=== PATIENT | male | born 1990 | race Two or more races ===

== ENCOUNTER 2025-04-06 07:41 | Outpatient (CLI) | payer BC ==
[2025-04-06 08:19] LABS: EOSINOPHILS # (AUTO) 0.2 X10'3 (0-0.9); EOSINOPHILS % (AUTO) 3.6 % (0-6); HEMATOCRIT 43.3 % (42.0-52.0); HEMOGLOBIN 14.7 g/dl (14.0-17.9); LYMPHOCYTES # (AUTO) 1.7 X10'3 (1.1-4.8); LYMPHOCYTES % (AUTO) 37.6 % (21-51); MEAN CORPUSCULAR HEMOGLOBIN 29.3 PG (27.0-31.0); MEAN CORPUSCULAR VOLUME 86.3 FL (78-98); MEAN PLATELET VOLUME 8.2 FL (7.4-10.4); MONOCYTES # (AUTO) 0.3 X10'3 (0-0.9); MONOCYTES % (AUTO) 6.5 % (2-12); NEUTROPHILS # (AUTO) 2.4 X10'3 (1.8-7.7); NEUTROPHILS % (AUTO) 51.3 % (42-75); PLATELET COUNT 202 X10'3 (140-440); RED BLOOD COUNT 5.01 X10'6 (4.70-6.10); RED CELL DISTRIBUTION WIDTH 13.2 % (11.5-14.5); WHITE BLOOD COUNT 4.6 X10'3 (4.5-11.0)
[2025-04-06 08:22] LABS: ALANINE AMINOTRANSFERASE 14 U/L (12-78); ALBUMIN 3.7 G/DL (3.4-5.0); ALBUMIN/GLOBULIN RATIO 1.1 (1.1-1.5); ALKALINE PHOSPHATASE 52 IU/L (46-116); ANION GAP 5 (8-16); ASPARTATE AMINO TRANSFERASE 22 U/L (10-37); BILIRUBIN,TOTAL 0.4 MG/DL (0.1-1.0); BLOOD UREA NITROGEN 23 MG/DL (7-18); BUN/CREATININE RATIO 18.1 (10.0-20.0); CALCIUM 8.7 MG/DL (8.5-10.1); CHLORIDE 108 MMOL/L (99-107); CHOL/HDL RATIO 3.3 (0.00-4.99); CHOLESTEROL 147 MG/DL (0-200); CREATININE 1.27 MG/DL (0.60-1.10); GLUCOSE 97 MG/DL (70-104); HDL CHOLESTEROL 44 MG/DL (35-60); LDL CHOLESTEROL 88 MG/DL (50-100); POTASSIUM 4.2 MMOL/L (3.5-5.1); SODIUM 143 MMOL/L (135-145); TOTAL CARBON DIOXIDE 29.9 MMOL/L (24-32); TOTAL PROTEIN 7.1 G/DL (6.4-8.2); TRIGLYCERIDES 78 MG/DL (20-135); eGFR 65 ML/MIN
[2025-04-06 08:30] LABS: HEMOGLOBIN A1C 5.2 % (4.5-6.2)
[2025-04-07 11:12] LABS: TESTOSTERONE, SERUM 498 ng/dL (264-916)
[2025-04-08 05:16] LABS: FOLATE SERUM(FOLIC) 7.9 ng/mL (>3.0)
== END 2025-04-06 23:59 | disposition home or self-care (01) ==
LOC: LAB 07:41
PROVIDERS: ATTEND Nurse Practitioner Family
DX: Z13.220 Encounter for screening for lipoid disorders (principal); Z00.01 Encounter for general adult medical examination with abnormal findings; R73.01 Impaired fasting glucose; R53.83 Other fatigue; E55.9 Vitamin D deficiency, unspecified; R68.82 Decreased libido
CPT/HCPCS: 36415; 80053; 80061; 82306; 82607; 82746; 83036; 84402; 84403; 85025

== ENCOUNTER 2025-05-10 10:51 | Outpatient (CLI) | payer BC ==
[2025-05-10 11:40] LABS: BILIRUBIN,URINE NEGATIVE (Neg); CLARITY,URINE CLEAR (Clear); COLOR,URINE STRAW (Yellow); GLUCOSE, URINE NEGATIVE (Neg); KETONES,URINE NEGATIVE (Neg); LEUKOCYTE ESTERASE ,URINE NEGATIVE (Neg); NITRITES, URINE NEGATIVE (Neg); OCCULT BLOOD,URINE NEGATIVE (Neg); PROTEIN,URINE NEGATIVE (Neg); UROBILINOGEN,URINE 0.2 E.U/dL (0.2-1.0)
[2025-05-10 11:43] LABS: UA COLLECTION TYPE NON-SPECIFIED
[2025-05-10 12:04] LABS: ANION GAP 12 (8-16); BLOOD UREA NITROGEN 18 MG/DL (7-18); CHLORIDE 104 MMOL/L (99-107); CREATININE 1.18 MG/DL (0.60-1.10); GLUCOSE 106 MG/DL (70-104); POTASSIUM 3.9 MMOL/L (3.5-5.1); SODIUM 142 MMOL/L (135-145); TOTAL CARBON DIOXIDE 26.4 MMOL/L (24-32)
[2025-05-10 12:05] LABS: ALANINE AMINOTRANSFERASE 33 U/L (12-78); ALBUMIN 3.8 G/DL (3.4-5.0); ALBUMIN/GLOBULIN RATIO 0.9 (1.1-1.5); ALKALINE PHOSPHATASE 72 IU/L (46-116); ASPARTATE AMINO TRANSFERASE 23 U/L (10-37); BILIRUBIN,TOTAL 0.2 MG/DL (0.1-1.0); BUN/CREATININE RATIO 15.3 (10.0-20.0); CALCIUM 9.1 MG/DL (8.5-10.1); TOTAL PROTEIN 8.1 G/DL (6.4-8.2); eGFR 71 ML/MIN
== END 2025-05-10 23:59 | disposition home or self-care (01) ==
LOC: LAB 10:51
PROVIDERS: ATTEND Hospitalist
DX: R79.89 Other specified abnormal findings of blood chemistry (principal)
CPT/HCPCS: 36415; 80053; 81003